=== PATIENT | female | born 1960 | race Two or more races ===

== ENCOUNTER → 2018-02-06 | Outpatient (CLI) | payer BC ==
--- NOTE | 2018-02-07 14:50 | SLEEP ---
DATE OF STUDY: 02/06/2018 ATTENDING PHYSICIAN: Dr. Tracy Lawton. The patient is 57-year-old who weighs 108 pounds with a BMI of 21. The patient's [place] score was 1. The patient underwent a diagnostic sleep study at [facility]. During the night study, the patient spent 421 minutes in bed and slept for 322 minutes with a sleep efficiency of 77%. Sleep latency was 28 minutes with a REM latency of 281 minutes. Overall, sleep architecture showed normal stage 1 sleep with slightly increased stage 2 sleep, increased slow wave and reduced REM sleep. During the night study, the patient had 51 obstructive apneas, 19 mixed apneas, 1 central apnea and 9 hypopneas. The patient's apnea hypopnea index was 15 per hour with the supine index of 20 per hour and a REM index of 2 per hour. EKG monitoring revealed normal sinus rhythm, average heart rate of 63 beats per minute, no sustained arrhythmias were observed. Nocturnal oximetry study revealed no clinically significant desaturations with a mean saturation of 98% and the minimum of 90%. PLMS were not observed. Due to low AHI, the patient did not meet the split night criteria for CPAP initiation. IMPRESSION: 1. [id number] sleep apnea-hypopnea syndrome. Total AHI 15 per hour with a supine AHI of 20 per hour. 2. No clinically significant nocturnal hypoxia. 3. No clinically significant PLMS. RECOMMENDATIONS: 1. The patient did not meet the split night criteria for CPAP initiation. 2. The patient's sleep apnea can be treated with either a trial of oral appliance or CPAP titration if the patient is clinically symptomatic or if patient has comorbid conditions. 3. Avoid [employer] depressants. 4. Caution regarding driving until symptoms of sleep apnea resolve with the above recommendations. SOPHIA CANNON MD DR: ELIUD/risa JOB#: [id number] / [id number] TRACY Moreno MD
== END | disposition home or self-care (01) ==
LOC: SLPLAB 18:34
PROVIDERS: ATTEND Internal Medicine Critical Care Medicine
DX: G47.33 Obstructive sleep apnea (adult) (pediatric) (principal)
CPT/HCPCS: 95810